=== PATIENT | female | born 1955 | race Caucasian/White ===

== ENCOUNTER 2017-02-17 16:11 | Emergency (ER) | payer MEDICARE ==
[~2017-02-17] VITALS: Ht 160 cm; Wt 78.2 kg
[2017-02-17 16:19] VITALS: BP 147/77; PULSE 87; RESP 18; O2SAT 96
--- NOTE | 2017-02-17 16:34 | ED.REPORT ---
HPI-General Illness Date of Service Feb 17, 2017 ED Provider: Dr. Wahl Pt is a 62 year old female who presents to the ED via EMS with concerns for dark stool. She reports that she has been feeling nauseated for 5 days, and reports that she had a black stool several days ago, which were alleviated with Imodium. She states that she had a bleeding ulcer in the past. She reports that she has a history of alcohol abuse. Pt denies any abdominal pain, constipation or any other symptoms. She reports that she had a syncopal episode several days after being placed on a new medication. Nursing Notes Stated Complaint: DARK STOOL Chief Complaint: General Complaint Nursing Notes Reviewed: Yes Allergies: Coded Allergies: No Known Allergies (Unverified , 02/17/17) General Time Seen by MD: 16:33 Chief Complaint Abdominal pain Hx Obtained From: Patient Arrived By: Ambulance Sudden in Onset?: Yes Onset Occurred: 4 days ago Symptom Duration: Since onset Location: : Abdomen Quality: Painful Severity: Current: Mild Severity: Maximum: Moderate Similar Sx Previous: Yes Past Medical History Past Medical History Bleeding ulcer Review of Systems Full Review of Systems Constitutional: Denies: Chills, Fever, Malaise, Weakness - generalized Respiratory: Denies: Non-productive cough, Wheezing Cardiovascular: Denies: Chest pain, Syncope GI: Reports: Bloody/tarry stool, Diarrhea, Denies: Abdominal pain, Constipation, Nausea, Vomiting Female: Denies: Dysuria, Flank pain, Urinary frequency, Urinary urgency Musculoskeletal: Denies: Back pain Skin: Denies Diaphoresis Neurologic: Denies: Change LOC, Dizziness, Headache, Syncope Psychiatric: Denies: Anxiety Complete sys rev & neg: except as marked. Physical Exam Vital Signs Vital Signs Date Time Temp Pulse Resp B/P Pulse Ox O2 Delivery O2 Flow Rate FiO2 02/17/17 18:44 36.9 101 141/86 98 Room Air 02/17/17 16:19 36.8 87 18 147/77 96 Room Air Initial VS: Reviewed General/Constitutional: Well-developed, Well-nourished Head / Eyes: Atraumatic, Normocephalic, PERRL ENT: Mucous membranes moist, Conjunctiva normal, No scleral icterus Neck: Supple, Non-tender, Full range of motion Respiratory: Breath sounds normal, Clear to auscultation, No respiratory distress Cardiovascular: Regular rate & rhythm, Heart sounds normal, Intact distal pulses Skin: Warm, Dry, No cyanosis Neurologic: Alert, Oriented, Nonfocal Rectum / Perineum: Atraumatic, Blood - occult heme -, No gross blood Interpretation & Diagnostics Lab Results Interpretation Result Diagram: 02/17/17 1648 02/17/17 1648 Test 02/17/17 16:48 White Blood Count 7.0th/mm3 (3.8-10.1) Red Blood Count 3.93mil/mm3 (3.90-5.20) Hemoglobin 11.1g/dL (12.0-15.6) Hematocrit 35.6% (35.0-46.0) Mean Corpuscular Volume 90.6fL (81-100) Mean Corpuscular Hemoglobin 28.2pg (27.0-35.0) Mean Corpuscular Hemoglobin Concent 31.2% (32.0-37.0) Red Cell Distribution Width 17.2% (12.3-15.4) Platelet Count 312bil/L (150-400) Neutrophils (%) (Auto) 67.7% (40-74) Lymphocytes (%) (Auto) 18.0% (14-46) Monocytes (%) (Auto) 10.9% (4-12) Eosinophils (%) (Auto) 2.4% (0-5) Basophils (%) (Auto) 0.4% (0-3) Sodium Level 142mEq/L (134-144) Potassium Level 4.0mEq/L (3.5-5.2) Chloride Level 103mEq/L (97-108) Carbon Dioxide Level 23mmol/L (18-29) Blood Urea Nitrogen 26mg/dL (8-27) Creatinine 0.90mg/dL (0.57-1.00) Estimat Glomerular Filtration Rate 91mL/min (>59) Glucose Level 119mg/dL (60-99) Calcium Level 10.2mg/dL (8.5-10.1) Total Bilirubin 0.3mg/dL (0.0-1.2) Aspartate Amino Transf (AST/SGOT) 21U/L (0-50) Alanine Aminotransferase (ALT/SGPT) 17U/L (0-32) Alkaline Phosphatase 66U/L (25-165) Total Protein 7.7g/dL (6.4-8.4) Albumin 4.7g/dL (3.4-5.0) Re-Eval/Medical Decision Med Decision/Clinical Course 62-year-old female history of GI bleeds presenting with dark stools several days ago now resolved. Patient with history of gastric ulcer several months ago. Reports dark stool several days ago. She did start iron several weeks ago. She denies any hematemesis. Denies any blood in stools. Vital signs stable. She is guaiac negative. Hemoglobin is 11 - no baseline. Though with guaiac-negative stools and normal vital signs do not suspect acute GI bleed. Discussed the patient she is stable for discharge home plans to follow up with her primary doctor in several days. Return precautions given of any melena or BRBPR or any other new or worsening symptoms. Source of Hx: Old records Time of Eval: 17:48 Re-Evaluation/Progress Note: Pt is rechecked and informed of her lab results and the plan to discharge her at this time. She understands and agrees, all questions are addressed. Counseled Regarding: Diagnosis, Lab results, Need for follow-up, When/why to return to ED Discharge & Departure Primary Impression: Dark stools Additional Impression: History of GI bleed Disposition: Home Discharge Condition All VS Reviewed: Yes Condition: Stable Additional Instructions: I believe that your episode of dark stool was due to the iron that you took. You do not have a gastrointestinal bleed at this time. Follow up with your primary care provider later this week. Return to the emergency department with any fevers, bloody stools, or any other worsening or concerning symptoms. Referrals: [facility] Attestation Portions of this note were transcribed by Stephenie Ellington. I, Dr. Wahl personally performed the history, physical exam and medical decision-making; I reviewed and confirmed the accuracy of the information in the transcribed note. Signed by: Radha Jesus, 02/17/2017 17:49 copies to: [facility] Alpesh Wahl MD Feb 17, 2017 16:34 SOPHIA ELLINGTON Feb 17, 2017 16:44
[2017-02-17 17:06] LABS: BASOPHILS % (AUTO) 0.4 % (0-3); EOSINOPHILS % (AUTO) 2.4 % (0-5); MONOCYTES % (AUTO) 10.9 % (4-12); Mean Corpuscular Hemoglobin 28.2 pg (27.0-35.0); Mean Corpuscular Volume 90.6 fL (81-100); NEUTROPHILS % (AUTO) 67.7 % (40-74); Platelet Count 312 bil/L (150-400)
[2017-02-17 18:44] VITALS: BP 141/86; PULSE 101; O2SAT 98
== END 2017-02-17 18:46 | disposition home or self-care (01) ==
LOC: SED 16:11
DX: R19.5 Other fecal abnormalities (principal); R11.0 Nausea; Z87.19 Personal history of other diseases of the digestive system